=== PATIENT | female | born 1950 | race African-American/Black ===

== ENCOUNTER 2019-04-09 08:50 | Outpatient (CLI) | payer MEDICARE ==
--- NOTE | 2019-04-09 10:17 | CT ---
CT OF BRAIN PERFORMED WITHOUT CONTRAST ENHANCEMENT: Date: 04/09/19 HISTORY: Headache. FINDINGS: The ventricular and cisternal system is within normal limits. There are no signs of intracerebral hem orrhage or extra-axial fluid collections. The mastoid air cells and visualized sinuses are clear. IMPRESSION: No acute intracranial abnormalities. POS: [facility]
== END 2019-04-09 08:51 | disposition home or self-care (01) ==
LOC: SCSCT 08:50
PROVIDERS: ATTEND Psychiatry & Neurology Neurology
DX: R51 Headache (principal)
CPT/HCPCS: 70450